=== PATIENT | male | born 1975 | race African-American/Black ===

== ENCOUNTER 2021-12-06 13:19 | Emergency (ER) | payer OTHER ==
[~2021-12-06] VITALS: Ht 172.7 cm; Wt 108.9 kg
[2021-12-06] MEDS ORDERED: AZITHROMYCIN500 MG PO (18:12)
[2021-12-06] MEDS ORDERED: MUCINEX DM ER1 EACH PO (18:12)
[2021-12-06] MEDS ORDERED: XOPENEX0.63 MG/3 IH (18:12)
[2021-12-06] MEDS ORDERED: MEDROLPACK PO (18:12)
== END 2021-12-06 19:33 | disposition home or self-care (01) ==
LOC: ER 13:19
DX: J06.9 Acute upper respiratory infection, unspecified (principal); Z20.822 Contact with and (suspected) exposure to COVID-19